=== PATIENT | male | born 2000 | race Hispanic/Latino ===

== ENCOUNTER 2019-01-02 23:15 | Inpatient (IN) | payer SELFPAY ==
[2019-01-03] MEDS ORDERED: HYDROcodone/Acetaminophen 5/325 mg Tablet ONE (00:47)
[2019-01-03 03:45] LABS: #Basophils 0.1 thou/uL (0.0-0.2); #Lymphocytes 2.2 thou/uL (1.20-3.40); #Neutrophils 10.7 thou/uL (1.40-6.50); %Basophils 0.6 % (0.0-1.0); %Eosinophils 0.2 % (0.0-10.0); %Lymphocytes 15.7 % (28.0-48.0); %Monocytes 7.2 % (0.0-4.0); %Neutrophils 76.3 % (31.0-61.0); Hemoglobin 18.7 g/dL (14.0-18.0); Mean Corpuscular HGB CONC 34.3 g/dL (32.0-36.0); Mean Corpuscular Hemoglobin 31.6 pg (25.0-35.0); Mean Corpuscular Volume 92.2 fL (78.0-98.0); Mean Platelet Volume 6.4 fL (7.4-10.4); Platelet Count 298 thou/uL (130-400); RBC Distribution Width 12.2 % (11.5-14.5); Red Blood Cell (RBC) Count 5.92 mill/uL (4.00-5.20)
[2019-01-03 04:07] LABS: ALT (SGPT) 239 U/L (8-55); AST (SGOT) 641 U/L (10-45); Albumin 4.4 g/dL (3.5-5.0); Alkaline Phosphatase 71 U/L (50-130); Anion Gap 17 mmol/L (10-20); BUN (Urea Nitrogen) 9 mg/dL (8.4-21.0); Bilirubin, Total 0.8 mg/dL (0.2-1.2); Calc. Creatinine Clearance 0 mL/min (70-130); Calcium 8.4 mg/dL (7.8-10.44); Carbon Dioxide 19 mmol/L (22-29); Chloride 101 mmol/L (98-107); Estimated GFR-MDRD Greater than 90; Globulin 2.8 g/dL (2.4-3.5); Glucose 104 mg/dL (70-105); Potassium 3.5 mmol/L (3.5-5.1); Protein, Total 7.2 g/dL (6.0-8.3); Sodium 133 mmol/L (136-145)
[2019-01-03 04:47] LABS: Bilirubin Negative (Negative); Blood, Urine 3+ (Negative); Clarity Clear (Clear); Glucose, Urine (Dipstick) Normal (Negative); Leukocyte Negative Leu/uL (Negative); Nitrite Negative (Negative); Protein, Urine (Dipstick) 100 mg/dL (Neg-Trace); RBC/HPF 0-3 HPF (0-3); Squamous Epithelial 0-3 HPF (0-3); Urobilinogen Normal mg/dL (Less than 2)
[2019-01-03 05:15] LABS: Bacteria/HPF 1+ HPF (None Seen); WBC/HPF 0-3 HPF (0-3)
[2019-01-03] MEDS ORDERED: Ondansetron PF 4 MG/2 ML Vial IVP PRN (06:21)
[2019-01-03] MEDS ORDERED: Ondansetron ODT 4 MG TAB SL PRN (06:21)
[2019-01-03] MEDS ORDERED: Morphine 2 MG/ML SYRINGE SLOW IVP PRN (06:22)
[2019-01-03] MEDS ORDERED: Sodium Chloride 0.9% 1,000 ML IV SCH (06:30)
[2019-01-03 06:41] VITALS: BMI 24.7
[2019-01-03] MEDS ORDERED: Acetaminophen/Codeine 30-300mg Tablet PO PRN (07:22)
[2019-01-03] MEDS ORDERED: Fentanyl 100 MCG/2 ML VIAL SLOW IVP PRN (07:22)
[2019-01-03] MEDS: Sodium Chloride 0.9% 1,000 ML IV SCH ×2 (07:30→15:16)
--- NOTE | 2019-01-03 07:49 | RAD ---
Radiograph right hip 2 views: DATE: 01/03/2019 HISTORY: 18-year-old male with right hip pain FINDINGS: No fracture or dislocation. Femoral head contour is maintained. No DJD. No high-grade joint space tisha rowing. No destructive osseous lesion. IMPRESSION: Negative.
--- NOTE | 2019-01-03 07:52 | RAD ---
RADIOGRAPH RIGHTWRIST 3 VIEWS: DATE: 01/03/2019 HISTORY: 18-year-old male with pain and swelling of right wrist. FINDINGS: No fracture is identified. However, if there is snuffbox tenderness following trauma that suggests an occult scaphoid fracture, then the general recommendation is immobilization and follow-up imaging in 5-10 days. Alignment is normal. Joint spaces are maintained without erosions or large osteophytes. There are no abnormal soft tissue calcifications. No evidence of periostitis, permeative lesion, osteolytic lesion, or osteoblastic lesion. There is diffuse soft tissue swelling. IMPRESSION: 1. Diffuse soft tissue edema. 2. Osseous structures appear normal.
--- NOTE | 2019-01-03 08:52 | RAD ---
FRONTAL VIEW CHEST: Date: 01/03/19 No prior comparison. INDICATION: Swelling, pain. FINDINGS: Lungs are clear. Cardiac silhouette is normal in size. No effusion or pneumothorax. IMPRESSION: No focal consolidation. POS: C
[2019-01-03] MEDS: Acetaminophen/Codeine 30-300mg Tablet PO PRN ×3 (10:54→21:47)
--- NOTE | 2019-01-03 11:28 | HP ---
CHIEF COMPLAINT: Right hand pain. HISTORY OF PRESENT ILLNESS: Mr. Perez is a 18-year-old male, who was intoxicated last night. The patient reportedly fell asleep or passed out and laid on his hand and wrist. He finally awoke and came to the emergency department because he has swelling, pain, and numbness of his hand. He was admitted overnight for this condition. We have decided to observe him to rule out compartment syndrome as well as to check his laboratory studies as he does have elevated CK. PAST MEDICAL HISTORY: Negative. PAST SURGICAL HISTORY: Negative. SOCIAL HISTORY: The patient does have a positive history of alcohol use. He denies smoking or drug use. He speaks English. He does have a friend, who is translating. ALLERGIES: NO KNOWN DRUG ALLERGIES. PHYSICAL EXAMINATION: VITAL SIGNS: Stable. The patient's blood pressure is 134/77, temperature is 98.4, pulse is 89, respiratory rate is 18, and 97% on room air. GENERAL: He is alert and oriented. He awakes upon questioning. RESPIRATORY: Breathing comfortably. HEENT: Normocephalic and atraumatic. ABDOMEN: Soft, nontender, and nondistended. MUSCULOSKELETAL: The patient's right upper extremity has swelling of the arm with edema up to the mid forearm level. The wrist is swollen as well as the hand. His compartments are soft to palpation, however, though they are not tense. He does have a large blister over the palmar aspect of the hand near the wrist. He is able to gently flex and extend the digits. This does not cause significant discomfort. Passive motion of the digits does not cause discomfort. He reports paresthesia of the digits, all 5. Two-second capillary refill. IMAGING DATA: X-ray of the right wrist and hand demonstrates no acute findings in the bony structure. Negative x-ray. IMPRESSION: Wrist and hand injury with rhabdomyolysis from pressure overnight after intoxication. PLAN: At this point, we will continue to observe the patient. I do not think he will develop compartment syndrome at this point, but we will continue to monitor his pain and symptoms. We will also continue to give him intravenous fluids. We will follow his laboratory studies to ensure that his CK starts to be downtrending and recheck his kidney function tomorrow morning. I would anticipate that he could leave the hospital tomorrow. He can have a diet today without plans of surgery immediately. Job ID: [id number]
[2019-01-03 15:21] LABS: Anion Gap 10 mmol/L (10-20); BUN (Urea Nitrogen) 8 mg/dL (8.4-21.0); Calc. Creatinine Clearance 157 mL/min (70-130); Calcium 8.3 mg/dL (7.8-10.44); Carbon Dioxide 25 mmol/L (22-29); Chloride 104 mmol/L (98-107); Estimated GFR-MDRD Greater than 90; Glucose 94 mg/dL (70-105); Potassium 3.7 mmol/L (3.5-5.1); Sodium 135 mmol/L (136-145)
[2019-01-03 15:50] LABS: CK (CPK) 30248 U/L (30-200)
[2019-01-04] MEDS: Sodium Chloride 0.9% 1,000 ML IV SCH ×4 (00:46→19:13)
[2019-01-04] MEDS: Acetaminophen/Codeine 30-300mg Tablet PO PRN (06:36)
[2019-01-04 06:54] LABS: Anion Gap 12 mmol/L (10-20); BUN (Urea Nitrogen) 6 mg/dL (8.4-21.0); Calc. Creatinine Clearance 175 mL/min (70-130); Calcium 8.6 mg/dL (7.8-10.44); Carbon Dioxide 24 mmol/L (22-29); Chloride 102 mmol/L (98-107); Estimated GFR-MDRD Greater than 90; Glucose 100 mg/dL (70-105); Potassium 3.3 mmol/L (3.5-5.1); Sodium 135 mmol/L (136-145)
[2019-01-04 07:44] LABS: ALT (SGPT) 200 U/L (8-55); AST (SGOT) 454 U/L (10-45); Albumin 3.7 g/dL (3.5-5.0); Alkaline Phosphatase 56 U/L (50-130); Bilirubin, Direct 0.4 mg/dL (0.1-0.3); Bilirubin, Total 0.9 mg/dL (0.2-1.2); Protein, Total 6.1 g/dL (6.0-8.3)
[2019-01-04] MEDS ORDERED: FLU VACC QS2019-20(6MOS UP)/PF 60 MCG/0.5 ML SYRINGE IM ONE (09:00)
[2019-01-04 10:42] LABS: #Basophils 0.1 thou/uL (0.0-0.2); #Eosinphils 0.1 thou/uL (0.0-0.7); #Lymphocytes 1.6 thou/uL (1.20-3.40); #Monocytes 0.9 thou/uL (0.11-0.59); #Neutrophils 6.2 thou/uL (1.40-6.50); %Basophils 0.6 % (0.0-1.0); %Eosinophils 1.6 % (0.0-10.0); %Lymphocytes 18.4 % (28.0-48.0); %Monocytes 9.6 % (0.0-4.0); %Neutrophils 69.9 % (31.0-61.0); Hemoglobin 15.5 g/dL (14.0-18.0); Mean Corpuscular HGB CONC 33.8 g/dL (32.0-36.0); Mean Corpuscular Hemoglobin 31.3 pg (25.0-35.0); Mean Corpuscular Volume 92.5 fL (78.0-98.0); Mean Platelet Volume 6.7 fL (7.4-10.4); Platelet Count 216 thou/uL (130-400); RBC Distribution Width 11.8 % (11.5-14.5); Red Blood Cell (RBC) Count 4.96 mill/uL (4.00-5.20); White Blood Cell (WBC) Count 8.9 thou/uL (4.8-10.8)
[2019-01-04] MEDS ORDERED: Potassium Citrate 10 MEQ TAB PO SCH (13:00)
[2019-01-04 13:33] LABS: Magnesium 1.8 mg/dL (1.7-2.2); Phosphorus 2.7 mg/dL (2.3-4.7)
[2019-01-04] MEDS: Potassium Citrate 10 MEQ TAB PO SCH (17:58)
--- NOTE | 2019-01-04 21:37 | PDOC.HOSPP ---
- Subjective Encounter Date: 01/04/19 Encounter Time: 14:00 Subjective: Patient seen and examined for med mngt. No PCP. Kiswahili speaking only. No new complaints. Pain controlled - Objective Vital Signs & Weight: Vital Signs (12 hours) Temp Pulse Resp BP Pulse Ox 01/04/19 20:35 99.5 F 69 18 121/71 98 01/04/19 15:25 98.9 F 117 H 20 124/80 98 Weight Weight 139 lb 11.2 oz I&O: 01/03/19 01/04/19 01/05/19 06:59 06:59 06:59 Intake Total 5 3600 Output Total 400 3450 Balance 1625 150 Result Diagrams: 01/04/19 10:29 01/04/19 06:24 Additional Labs: Laboratory Tests 01/03/19 01/04/19 01/04/19 14:40 06:24 10:29 Sodium 135 L Potassium 3.3 L Creatine Kinase 98933 H 71829 H EKG Reviewed by me: Yes (SR) Hospitalist ROS - Review of Systems Respiratory: denies: cough, dry, shortness of breath, hemoptysis, SOB with excertion, pleuritic pain, sputum, wheezing, other Cardiovascular: denies: chest pain, palpitations, orthopnea, paroxysmal noc. dyspnea, edema, light headedness, other - Medication Medications: Active Medications Generic Name Dose Route Start Last Admin Trade Name Freq PRN Reason Stop Dose Admin Acetaminophen/Codeine Phosphate 2 tab 01/03/19 07:22 01/04/19 06:36 Tylenol #3 PO 2 tab Q4H PRN Administration Severe Pain (7-10) Sodium Chloride 1,000 mls @ 200 mls/hr 01/04/19 12:47 01/04/19 19:13 Normal Saline 0.9% IV Not Given .Q5H ELIS Potassium Citrate 20 meq 01/04/19 17:00 01/04/19 17:58 Urocit K PO 20 meq BID-WM ELIS Administration - Exam General Appearance: NAD Heart: RRR, no murmur, no gallops, no rubs Respiratory: CTAB, no wheezes, no rales, no ronchi Gastrointestinal: soft, non-tender, non-distended, normal bowel sounds Extremities: no cyanosis, no clubbing, no edema Neurological: no new deficit Psychiatric: normal affect, normal behavior, A&O x 3, oriented to person Hosp A/P - Plan DVT proph w/SCDs Alcohol intoxication Rhadbomyolysis Hypokalemia Hyponatremia Dehydration PLAN: Increase IV NS to 200 ml/hr Encourage PO intake Replace Potassium AM labs Ambulate Add Thiamine/Folic acid/MVM Thank you for this consultation. Will follow
[2019-01-05] MEDS: Sodium Chloride 0.9% 1,000 ML IV SCH ×3 (01:00→08:47)
[2019-01-05 05:05] LABS: ALT (SGPT) 205 U/L (8-55); AST (SGOT) 451 U/L (10-45); Albumin 3.5 g/dL (3.5-5.0); Alkaline Phosphatase 51 U/L (50-130); Anion Gap 9 mmol/L (10-20); BUN (Urea Nitrogen) 7 mg/dL (8.4-21.0); Bilirubin, Total 0.8 mg/dL (0.2-1.2); Calc. Creatinine Clearance 175 mL/min (70-130); Calcium 8.6 mg/dL (7.8-10.44); Carbon Dioxide 28 mmol/L (22-29); Chloride 105 mmol/L (98-107); Estimated GFR-MDRD Greater than 90; Globulin 2.3 g/dL (2.4-3.5); Glucose 101 mg/dL (70-105); Potassium 3.4 mmol/L (3.5-5.1); Protein, Total 5.8 g/dL (6.0-8.3); Sodium 139 mmol/L (136-145)
[2019-01-05 05:33] LABS: CK (CPK) 18131 U/L (30-200)
[2019-01-05] MEDS: Potassium Citrate 10 MEQ TAB PO SCH (08:45)
[2019-01-05] MEDS ORDERED: Multivit, Therapeutic 1 TAB PO SCH (09:00)
[2019-01-05] MEDS ORDERED: Folic Acid 1 MG TAB PO SCH (09:00)
[2019-01-05] MEDS ORDERED: Thiamine 100 MG TAB PO SCH (09:00)
[2019-01-05 11:19] VITALS: BP 116/69; TEMP 98.6
--- NOTE | 2019-01-05 16:45 | PDOC.HOSPP ---
- Subjective Encounter Date: 01/05/19 Encounter Time: 09:30 Subjective: Patient seen and examined for med mngt. Pain controlled. No N/V/hematuria. No new complaints. No overnight events - Objective Vital Signs & Weight: Vital Signs (12 hours) Temp Pulse Resp BP Pulse Ox 01/05/19 11:18 98.6 F 74 16 116/69 100 01/05/19 07:34 98.1 F 81 18 120/72 99 Weight Weight 139 lb 11.2 oz I&O: 01/04/19 01/05/19 01/06/19 06:59 06:59 06:59 Intake Total 2024 6100 Output Total 400 3450 Balance 1625 2650 Result Diagrams: 01/04/19 10:29 01/05/19 04:07 Additional Labs: Laboratory Tests 01/05/19 04:07 Creatine Kinase [id number] H Hospitalist ROS - Review of Systems Respiratory: denies: cough, dry, shortness of breath, hemoptysis, SOB with excertion, pleuritic pain, sputum, wheezing, other Cardiovascular: denies: chest pain, palpitations, orthopnea, paroxysmal noc. dyspnea, edema, light headedness, other - Exam General Appearance: NAD Heart: RRR, no gallops Respiratory: CTAB, no rales Gastrointestinal: soft, non-tender, non-distended Extremities: no edema Hosp A/P - Plan DVT proph w/SCDs Alcohol intoxication Rhadbomyolysis Hypokalemia Hyponatremia Dehydration PLAN: Cont IV NS 200 ml/hr Replace Potassium Ambulate Cont Thiamine/Folic acid/MVM AM labs including CK
== END 2019-01-05 13:37 | disposition home or self-care (01) | DRG 558 ==
LOC: ERS 23:15 → SURG A 01-03 03:15 → OBSVTOIN 01-03 03:15 → SURG A 01-03 06:13
PROVIDERS: ADMIT Orthopaedic Surgery; ATTEND Orthopaedic Surgery
DX: M62.82 Rhabdomyolysis (principal); E87.1 Hypo-osmolality and hyponatremia; F10.129 Alcohol abuse with intoxication, unspecified; E87.6 Hypokalemia; E86.0 Dehydration
CPT/HCPCS: 36415; 71045; 80048; 80053; 80076; 81003; 81015; 82550; 83690; 83735; 84100; 85025; 96360; 96361; J2270

== ENCOUNTER 2021-08-08 01:51 | Observation (INO) | payer SELFPAY ==
[2021-08-08 02:26] LABS: #Eosinphils 0.4 thou/uL (0.0-0.7); #Lymphocytes 1.8 thou/uL (1.20-3.40); #Monocytes 1.1 thou/uL (0.11-0.59); #Neutrophils 11.2 thou/uL (1.40-6.50); %Basophils 0.3 % (0.0-1.0); %Eosinophils 2.8 % (0.0-10.0); %Lymphocytes 12.6 % (21.0-51.0); %Monocytes 7.4 % (0.0-10.0); %Neutrophils 76.9 % (42.0-75.0); Hemoglobin 17.4 g/dL (14.0-18.0); Mean Corpuscular HGB CONC 34.7 g/dL (32.0-36.0); Mean Corpuscular Hemoglobin 32.6 pg (27.0-31.0); Mean Corpuscular Volume 93.9 fL (78.0-98.0); Mean Platelet Volume 6.2 fL (7.4-10.4); Platelet Count 284 thou/uL (130-400); RBC Distribution Width 11.4 % (11.5-14.5); Red Blood Cell (RBC) Count 5.35 mill/uL (4.70-6.10); White Blood Cell (WBC) Count 14.5 thou/uL (4.8-10.8)
[2021-08-08] MEDS ORDERED: Morphine 4 MG/ML VIAL ONE ×2 (02:39→04:36)
[2021-08-08] MEDS ORDERED: Ondansetron PF 4 MG/2 ML Vial ONE (02:39)
[2021-08-08 03:02] LABS: ALT (SGPT) 14 U/L (8-55); AST (SGOT) 18 U/L (5-34); Albumin 4.9 g/dL (3.5-5.0); Alkaline Phosphatase 76 U/L (40-110); Anion Gap 16 mmol/L (10-20); BUN (Urea Nitrogen) 9 mg/dL (8.9-20.6); Bilirubin, Total 0.9 mg/dL (0.2-1.2); Calc. Creatinine Clearance 0 mL/min (70-130); Carbon Dioxide 26 mmol/L (22-29); Chloride 96 mmol/L (98-107); Globulin 3.4 g/dL (2.4-3.5); Glucose 107 mg/dL (70-105); Lipase 7 U/L (8-78); Potassium 3.6 mmol/L (3.5-5.1); Protein, Total 8.3 g/dL (6.0-8.3); Sodium 134 mmol/L (136-145)
[2021-08-08 03:21] LABS: Bilirubin Negative (Negative); Blood, Urine Negative (Negative); Clarity Clear (Clear); Glucose, Urine (Dipstick) Normal (Negative); Ketone, Urine Negative (Negative); Leukocyte Negative Leu/uL (Negative); Nitrite Negative (Negative); Protein, Urine (Dipstick) Negative (Neg-Trace); Specific Gravity, Urine 1.012 (1.002-1.036); Urobilinogen Normal mg/dL (Less than 2)
[2021-08-08] MEDS ORDERED: Piperacillin/Tazobactam 3.375 GM VIAL ONE (04:23)
[2021-08-08] MEDS ORDERED: Sodium Chloride 0.9% 1,000 ML IV SCH (04:45)
[2021-08-08 05:31] VITALS: BMI 25.4
[2021-08-08 05:34] LABS: SARS-CoV-2 NAA Rapid Test Not Detected (NotDetected)
[2021-08-08] MEDS ORDERED: Bupivacaine PF 0.5% 30 ML VIAL ONE (06:46)
[2021-08-08] MEDS ORDERED: Lidocaine 1% w/Epinephrine 1:100K 20 ML VIAL ONE (06:46)
[2021-08-08] MEDS ORDERED: Bupivacaine 0.25% HCL 30 ML VIAL ONE (06:46)
[2021-08-08] MEDS ORDERED: fentaNYL Citrate/PF 100 MCG/2 ML SYRINGE ONE ×2 (07:07→09:52)
[2021-08-08] MEDS ORDERED: Piperacillin/Tazobactam 3.375 GM in Sodium Chloride 0.9% 100 ML IVPB SCH ×2 (08:00→16:00)
[2021-08-08] MEDS ORDERED: Ketorolac Tromethamine 30 MG/ML VIAL ONE (08:45)
[2021-08-08] MEDS ORDERED: HYDROmorphone 0.5 MG/0.5 ML SYRINGE ONE (09:52)
[2021-08-08] MEDS ORDERED: Ondansetron HCl/PF 4 MG/2 ML Vial IVP PRN (10:53)
[2021-08-08] MEDS ORDERED: Promethazine HCl 25 MG/ML VIAL IM PRN (10:53)
[2021-08-08] MEDS ORDERED: Promethazine HCl 25 MG/ML VIAL IVPB PRN (10:53)
[2021-08-08] MEDS ORDERED: Morphine 4 MG/ML VIAL SLOW IVP PRN (11:17)
[2021-08-08] MEDS ORDERED: Ketorolac Tromethamine 30 MG/ML VIAL IVP PRN (11:17)
[2021-08-08] MEDS ORDERED: Ibuprofen 600 MG TAB PO PRN (11:44)
[2021-08-08] MEDS ORDERED: traMADol HCl 50 MG TAB PO PRN (11:44)
[2021-08-08] MEDS ORDERED: Acetaminophen 500 MG TAB PO PRN (11:44)
[2021-08-08 12:10] VITALS: BP 99/62; TEMP 97.5
[2021-08-08] MEDS ORDERED: ISOVUE-370 76%-LOCM 1 ML ONE (13:33)
== END 2021-08-08 17:35 | disposition home or self-care (01) ==
LOC: ERS 01:51 → SURG B 04:35
PROVIDERS: ADMIT Specialist; ATTEND Specialist
PROC: 0DTJ4ZZ Resection of Appendix, Percutaneous Endoscopic Approach (ICD-10-PCS; principal; 2021-08-08)
DX: K35.30 Acute appendicitis with localized peritonitis, without perforation or gangrene (principal); K38.8 Other specified diseases of appendix; Z20.822 Contact with and (suspected) exposure to COVID-19
CPT/HCPCS: 74177; 80053; 81003; 83690; 85025; 87086; 88304; A4649; G0378; J1170; J1885; J2270; J2405; J2543; J3490; J7050; Q9966; S0020; U0002